=== PATIENT | female | born 2005 | race African-American/Black ===

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

== ENCOUNTER 2023-07-26 16:04 | Emergency (ER) | payer OTHER | END 2023-07-26 16:30 | disposition home or self-care (01) | LOC: ERS 16:04 | DX: B36.9 Superficial mycosis, unspecified (principal) | CPT/HCPCS: 99282 ==

== ENCOUNTER 2023-11-28 20:17 | Emergency (ER) | payer OTHER ==
[2023-11-28] MEDS ORDERED: Ondansetron ODT 4 MG TAB ONE ×2 (20:46→22:42)
[2023-11-28] MEDS ORDERED: Ibuprofen 800 MG TAB ONE (20:46)
[2023-11-28 21:27] LABS: SARS-CoV-2 NAA Rapid Test Not Detected (NotDetected)
[2023-11-28] MEDS ORDERED: Acetaminophen 500 MG TAB ONE (22:41)
== END 2023-11-28 23:09 | disposition home or self-care (01) ==
LOC: ERS 20:17
DX: B34.9 Viral infection, unspecified (principal)
CPT/HCPCS: 71045; Q0162

== ENCOUNTER 2024-07-03 23:49 | Emergency (ER) | payer OTHER, SELFPAY ==
[2024-07-04 03:07] LABS: Influenza A by NAA Not Detected (NotDetected); Influenza B by NAA Not Detected (NotDetected); SARS-CoV-2 NAA Rapid Test Not Detected (NotDetected)
== END 2024-07-04 02:17 | disposition home or self-care (01) ==
LOC: ERS 23:49
DX: Z20.828 Contact with and (suspected) exposure to other viral communicable diseases (principal)
CPT/HCPCS: 99283